=== PATIENT | female | born 1990 | race Caucasian/White ===

== ENCOUNTER 2025-05-27 23:43 | Emergency (ER) | payer OTHER, SELFPAY ==
[2025-05-27 23:49] VITALS: BP 104/65; PULSE 80; RESP 16; TEMP 36.5; O2SAT 100; BMI 18.8
[2025-05-28 00:04] VITALS: BP 104/65; PULSE 80; RESP 16; TEMP 36.5; O2SAT 100
--- OUTSIDE RECORDS SUMMARY | 2025-05-28 00:44 | XMS_ITS | Clinical Summary ---
Author Organization [address] [facility] Address [address] [place] [address] Phone Care Team Providers Care Group Sales Coordinator Name Role Phone Julio Hinojosa MD Primary Care Provider [phone] Allergies Active Allergy Reactions Criticality Noted Date Comments Clindamycin Nausea And Vomiting High 09/13/2016 Codeine Nausea And Vomiting 03/08/2013 Doxycycline Nausea And Vomiting 11/05/2011 Doxycycline + [id number] Grass Pollen Unknown 12/26/2024 Shellfish Derived Unknown 12/26/2024 Medications albuterol HFA (PROAIR HFA ; PROVENTIL HFA ; VENTOLIN HFA) 90 mcg/actuation inhaler Inhale 2 Puffs into the lungs every 6 hours as needed for Cough or Wheezing 0 Active clotrimazole-be tamethasone (LOTRISONE) 1-0.05 % cream Apply topically 2 (two) times a day for 14 days. 15 g 5 05/20/20 25 Active Problems Problem Noted Date Diagnosed Date Lightheadedness 04/11/2023 Palpitations 04/11/2023 Overview (09/11/2024): Last Assessment & Plan: The patient has been experiencing episodes of palpitations. We will order a Holter monitor to evaluate for any underlying arrhythmias as a cause of her symptoms. We will also order an echocardiogram to rule out any significant structural heart disease. Finally, given that her she also complains of symptoms of palpitations with exertion, we will order an exercise stress test to rule out any exercise associated arrhythmias. SOB (shortness of breath) 04/11/2023 Overview (09/11/2024): Last Assessment & Plan: The patient has been complaining of symptoms of palpitations that occur with exertion. Her palpitations are associated with symptoms of dyspnea and a chest tightness sensation. We will order an exercise stress test to rule out the presence of exercise-induced arrhythmias. The exercise stress test will also allow us the ability to rule out any ischemic ECG changes with exertion. We will also order an echocardiogram to rule out the presence of underlying structural heart disease that may be associated to her symptoms. 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 Other eczema (Primary Dx) from Last 3 Months Immunizations Immunization Administration Dates Next Due Tdap Tetanus diptheria acell ular pertussis (Boostrix; Adacel) 7yo and older 07/31/2015 Medical History Medical History Date Comments Anxiety 07/31/2015 DX:Anxiety 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 DX:Fa ilure to thrive in adult Asthma 09/14/2016 DX:Asthma Hx of chlamydia infection DX:Hx of chlamydia infection History of recurrent miscarr iages, not currently 09/13/2017 DX:History of recurrent misc arriages, not currently Subclinical hyperthyroidism 10/22/2019 DX:S ubclinical hyperthyroidism Family History Medical History Relation Name Comments Arthritis Paternal Grandfather rheumat oid Relation Name Status Comments Paternal Grandfather Social History Tobacco Use Types Packs/Day Years Used Date Smoking Tobacco: Every Day Cigarettes Smokeless Tobacco: Never Alcohol Use Standard Drinks/Week Comments No 0 (1 standard drink = 0.6 oz pur e alcohol) Housing Instability Answer Date Recorde d Are you worried that in the next 2 months you may not have stable housing? No 05/06/2025 Food Access & Nutrition Answer Date Rec orded Do you have access to a vari ety of food including fruits and vegetables? Yes 05/06/2025 Access to Healthcare Answer Date Record ed Within the last 3 months, ho w many times did you visit the emergency department for your medical care? 0 05/06/2025 Health Literacy Answer Date Recorded How often do you need to hav e someone help you when you read instructions, pamphlets, or other written material from your doctor or pharmacy? Never 05/06/2025 Caregiver: How often do you need to have someone help you when you read instructions, pamphlets, or other written material from your doctor or pharmacy? Not on file 05/06/2025 Financial Risk Answer Date Recorded How hard is it for you to pa y for the very basics like food, housing, medical care, and air conditioning / heating? Somewhat hard 05/06/2025 Transportation Answer Date Recorded Has the lack of transportati on kept you from meetings, work, or from getting things needed for daily living? No Has the lack of transportati on kept you from medical appointments or from getting medications? No 05/06/2025 Social Isolation Answer Date Recorded How often do you feel lonely or isolated from those around you? Sometimes 05/06/2025 Food Risk Answer Date Recorded Within the past 12 months we worried whether our food would run out before we got money to buy more. Never true 05/06/2025 Within the past 12 months th e food we bought just didn't last and we didn't have money to get more. Never true 05/06/2025 Dependent Care Answer Date Recorded Do you need help finding or paying for care for your loved ones. For example, director child abuse therapy or elderly care for an older adult? No 05/06/2025 Education Answer Date Recorded Do you think completing more education or training, like finishing a GED, going to college, or learning a trade, would be helpful for you? No 05/06/2025 Employment and Income Answer Date Recor ded During the last four weeks, have you been actively looking for work? No 05/06/2025 Living Situation Answer Date Recorded What is your living situation? Unrecognized valu e 05/06/2025 Comments Unknown Sex and Gender Information Value Date Recorded Sex Assigned at Female 11/12/2024 9:28 AM EDT Legal Sex Female 5:26 AM EST Gender Identity Female 11/12/2024 9:28 AM EDT Sexual Orientation Choose not to disclose 2024 9:28 AM EDT Obstetrics History Last Filed Vital Signs Vital Sign Reading Time Taken Comments Blood Pressure 104/56 05/06/2025 1:02 PM EDT Pulse 72 05/06/2025 1:02 PM EDT Temperature 36.6 C (97.8 F) 05/06/2025 1:02 PM EDT Respiratory Rate 18 02/02/2025 3:33 PM EDT Oxygen Saturation 99% 05/06/2025 1:02 PM EDT Inhaled Oxygen Concentration - - Weight 49.4 kg (109 lb) 02/02/2025 3:35 PM EDT Height 160 cm (5' 3 ) 02/02/2025 3:35 PM EDT Body Mass Index 19.31 02/02/2025 3:35 PM EDT Plan of Treatment Upcoming Encounters Date Type Department Care Team (Late st Contact Info) Description 06/14/2025 10:45 AM EST Office Visit Internal Medicine - [address] [id number] Deysi Turner, [place] [address] [place] [id number] Health Maintenance Due Date Last Done Comments Hepatitis B Vaccines (1 of 3 - 19+ 3-dose series) 2011 Pneumococcal Vaccine: Pediatrics (0 to 5 Years) and At-Risk Patients (6 to 49 Years) (1 of 2 - PCV) 2011 HPV Vaccines (1 - 3-dose SCD M series) 2019 Cervical Cancer Screening: P ap Smear 10/05/2019 10/04/2016, 10/04/2016 Depression Screening 07/18/2024 COVID-19 Vaccine ( - 2024-2 6 season) 2025 Influenza Vaccine (#1) 2025 DTaP,Tdap,and Td Vaccines (2 - Td or Tdap) 07/31/2025 07/31/2015 Social Influencers of Health Screening 05/06/2026 05/06/2025 Cholesterol Screening (Lipid Panel) 04/21/2028 04/21/2023 RSV Immunization Adult Patients (1 - 1-dose 75+ series) 2067 HIV Screening Completed 09/13/2016 Hepatitis C Screening Completed 09/13/2016 HIB Vaccines Aged Out No longer eligi ble based on patient's age to complete this topic Hepatitis A Vaccines Aged Out No long er eligible based on patient's age to complete this topic IPV Vaccines Aged Out No longer eligi ble based on patient's age to complete this topic MMR Vaccines Aged Out No longer eligi ble based on patient's age to complete this topic Meningococcal ACWY Vaccine Aged Out N o longer eligible based on patient's age to complete this topic Meningococcal B Vaccine Aged Out No l onger eligible based on patient's age to complete this topic RSV Immunization Patients Under 20 months Aged Out No longer eligible b ased on patient's age to complete this topic Varicella Vaccines Aged Out No longer eligible based on patient's age to complete this topic Goals Goal Patient Goal Type Associated Problems Recent Progress Patient-Stated? 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 - not met Pt will be independent with HEP - met Procedures Procedure Name Priority Date/Time Associated Diagnosis Comments LIPID PANEL Routine 04/21/2023 PAP SMEAR Routine 10/04/2016 HEPATITIS C SCREENING Routine 09/13/2016 HIV SCREENING Routine 09/13/2016 from Last 3 Months or Most Recently Relevant to Health Maintenance Results * Lipid panel (04/21/2023) LDL/HDL Ratio 2 0 - 4 Triglycerides 108 0 - 150 mg/dL Cholesterol 133 0 - 200 mg/dL HDL 55 >=40 mg/dL LDL Cholesterol 57 0 - 100 mg/dL Blood Venous blood specimen / Unknown Historical Provider LAB BLOOD ORDERABLES Sneha l Result * Pap Smear (10/04/2016) Pap smear Negative, Abstracted Historical Provider HEALTH MAINTENANCE Final Result * HIV Screening (09/13/2016) HIV Screening Abstracted Historical Provider HEALTH MAINTENANCE Final Result * Hepatitis C Screening (09/13/2016) Hepatitis C Screening Abstracted Historical Provider HEALTH MAINTENANCE Final Result from Last 3 Months or Most Recently Relevant to Health Maintenance [place] [place] [address] [employer] Care Teams Group Sales Coordinator Relationship Specialty Start Date End Date Julio Hinojosa MD [address] [place] [id number] PCP - General Internal Medicine 08/01/19
--- OUTSIDE RECORDS SUMMARY | 2025-05-28 00:44 | XMS_ITS | Data Portability ---
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 Plan of Treatment Reminders Order Date Submit Date Provider Last Modified By Organization Details Last Modified Time Details Appointments None recorded. Lab rapid strep group A, throat 2022 023 [email or web address] [address], [address] [place], [address], 3 11:12:35 streptococ cus group A, culture, throat 2022 023 [place]L [place] [facility], [address] [place] [address], [place], [address], 3 06:07:47 Referral None recorded. Procedures None recorded. Surgeries None recorded. Imaging None recorded. Medication Orders amoxicilli n 875 mg tablet 2022 023 [facility]1130, [phone] [place], [address], 3 11:12:39 prednisone 20 mg tablet 2022 023 [facility]1130, [phone] [place], [address], 3 11:12:39 Allergy Relief (fluticaso ne) 50 mcg/actuat ion nasal spray,susp ension 2022 023 [facility] [phone] [place], [address], 3 11:12:38 fexofenadi ne 180 mg tablet 2022 023 [facility], [phone] [place], [address], 3 11:12:39 prednisone 20 mg tablet 2021 022 [facility] [phone] [place], [address], 3 10:38:05 benzonatat e 100 mg capsule 2021 022 [facility], [phone] [place], [address], 3 10:38:27 albuterol sulfate HFA 90 mcg/actuat ion aerosol inhaler 2021 022 [facility] [phone] [place], [address], 2 16:05:59 Patient TargetsNo targets recorded. Patient Instructions Encounter Date Encounter Id Patient Instructions Last Modified By Organization Details Last Modified Time 07/08/2022 [id number] cough: care instructions Not available 07/08/2022 16:05:56 [facility] if you develop ANY new or worsening symptoms. Call 911 if you feel that you are having a medical emergency. Call your primary care physician today to set up a follow up appointment within one week. Not following up with your primary care physician may result in adverse health conditions. If you have any questions or concerns, please call us. Take over the counter medications such as ibuprofen or tylenol according to package instructions. Do not exceed maximum dosage for age/weight. Do not take anything that you might be allergic to. Make sure to consult us or your primary care physician if you take medications such as blood thinners or blood pressure medications before taking over the counter medications. The best over the counter cough medication for people with high blood pressure is Coricidin, which is available at any pharmacy without a prescription. Drink plenty of water. [email or web address] Not available 07/08/2022 16:05:16 11/21/2022 [id number] sore throat: car choco instructions [email or web address] Not available 11/21/2022 11:12:35 Discussed potential complications and intervention options with the patient during this visit. Patient was instructed to increase room humidity and eat soft bland foods. Raising the head of the bed, lozenges, and saline nasal spray were also recommended. Patient may take ibuprofen or acetaminophen as needed for pain control. If the issue does not improve in 24-48 hours, patient should return to the clinic for follow-up. You have been prescribed an antibiotic for your bacterial illness. While antibiotics are sometimes necessary, they can have a negative impact upon the healthy bacteria within your body. This can result in diarrhea/loose stools and yeast infections. By taking probiotics during the course of your prescription, you can lessen the probability of these undesirable side effects. Probiotics can be purchased [id number] at your pharmacy in the form of capsules or gummies. They are also found naturally in yogurt with live cultures. Mix salt into a quarter-glass of warm water and stir until no more salt will dissolve. Gargle and spit out the salt water mixture one mouthful at a time until the glass is empty. Repeat 4 times daily. Hand hygiene is a jenkins measure for preventing spread to others, especially after coughing or sneezing and before preparing foods or eating, and we remind all patients of its importance. Please discard of your current tooth brush and get a new one after being on the antibiotic for 3-4 days to prevent reinfection. You are considered contagious until you have the antibiotic for 24 hours. We have sent out for lab results, typically take 3-5 days to return. [email or web address] Not available 11/21/2022 11:12:32 Reason for Referral None Reported. Results Created Date Observation Date Name Description Value Unit Range Abnormal Flag Note LastModifiedBy Organization Detail LastModifiedTime 11/22/19 23 11/24/2022 BETA STREP GP A CULTU RE beta strep gp A culture COMMEN T abnormal Beta- hemol ytic colon ies, not group A Strep tococ cus isola josefina. Refer ence Range : Negat horacio Penic illin and ampic illin are drugs of choic e for treat ment of beta- hemol ytic strep tococ alpa infec tions . Susce ptibi lity testi ng of penic illin s and other beta- lacta m agent s appro jesu by the FDA for treat ment of beta- hemol ytic strep tococ alpa infec tions need not be perfo rmed routi mckenzie becau se nonsu scept ible isola corrina are extre crystal rare in any beta- hemol ytic strep tococ cus and have not been repor josefina for Strep tococ cus pyoge ruel (grou p A). (CLSI ) Not Available [facility] ([facility]) [address] [facility], [place], [address], 11/24/2022 06:07:47 11/22/1911/21/2022 rapid strep group A, throa t Unknown Analyte Normal = Negati ve Not Available [address] [place], [address], 11/21/2022 10:35:27 11/22/1911/21/2022 rapid strep group A, throa t Unknown Analyte negati ve Not Available [address] [place], [address], 11/21/2022 10:35:27 Result Notes None recorded. Problems Name Problem SNOMED Code Status Onset Date Resolution Date Notes Provider Name and Address Organization Details Recorded Time Asthma 514425776 Active 2021 [facility] 2 15:43:11 Anxiety 02875196 Active 2022 [facility] 3 10:40:42 Hypoglycemia 693033862 Active 2022 EDU Pruitt [facility] 3 10:42:04 Atrial fibrillation 42089116 Active 2022 NICOLLE HUBBARD null, PA - [facility] 3 10:43:51 Migraine 59575988 Active 2022 NICOLLE HUBBARD null, PA - [facility] 3 10:43:57 Notes:H pylori Problem Notes None recorded. Medical Equipment None Reported. Allergies Allergen ID Allergen Name Allergen Category Reaction Reaction Severity Criticality Documentation Date Start Date Code Code System Note Provider Name and Address Organization Details Recorded Time 403303 grass pollen environme nt,medica tion Not available Not available Not available 11/21/2022 NICOLLE HUBBARD null, PA - [facility] 3 10:36:19 839870 codeine medicatio n vomiting Not available Not available 11/21/2022 2670 RxNorm NICOLLE HUBBARD null, PA - [facility] 3 10:36:57 618001 oxycodone medicatio n vomiting Not available Not available 11/21/2022 7804 RxNorm NICOLLE HUBBARD null, PA - [facility] 3 10:37:28 522290 shellfish derived food,medi cation Not available Not available Not available 11/21/2022 NICOLLE HUBBARD null, PA - [facility] 3 10:37:52 22477 doxycycli ne Not available vomiting Not available Not available 07/08/2022 3640 RxNorm GUS DESMITH null, PA - [facility] 2 15:42:18 76407 clindamyc in Not available vomiting Not available Not available 07/08/2022 2582 RxNorm GUS DESMITH null, PA - [facility] 2 15:42:26 Medications Name Sig Start Date Stop Date Status Note LastModified by Organization Details LastModified Time amoxicillin 500 mg capsule TAKE 1 CAPSULE BY MOUTH TWICE A DAY 07/08 completed Not Available Not Available Not Available acetaminoph en 325 mg tablet TAKE 2 TABLET BY MOUTH EVERY 4 HOURS NEEDED FOR PAIN active Not Available Not Available No t Available ibuprofen 800 mg tablet TAKE 1 TABLET BY MOUTH EVERY 6 TO 8 HOURS NEEDED 07/08 completed Not Available Not Available Not Available sucralfate 1 gram tablet TAKE 1 TABLET BY MOUTH BEFORE MEALS active Not Available Not Available No t Available metronidazo le 0.75 % (37.5 mg/5 gram) vaginal gel USE 1 APPLICATO R VAGINALLY DAILY AT BEDTIME,X 5 DAYS 07/08 completed Not Available Not Available Not Available prednisone 20 mg tablet TAKE 2 TABLETS EVERY DAY BY ORAL ROUTE WITH MEALS FOR 3 DAYS. active Not Available Not Available No t Available metronidazo le 500 mg tablet TAKE 1 TABLET BY MOUTH EVERY 12 HOURS FOR 7 DAYS 07/08 completed Not Available Not Available Not Available fexofenadin e 180 mg tablet TAKE 1 TABLET BY MOUTH EVERY DAY DIRECTED active Not Available Not Available No t Available oxycodone-a cetaminophe n 5 mg-325 mg tablet TAKE 1 TABLET BY MOUTH EVERY 4 TO 6 HOURS NEEDED FOR PAIN 07/08 completed Not Available Not Available Not Available amoxicillin 875 mg tablet TAKE 1 TABLET BY MOUTH EVERY 12 HOURS WITH MEALS FOR 10 DAYS active Not Available Not Available No t Available benzonatate 100 mg capsule TAKE 1 CAPSULE BY MOUTH THREE TIMES A DAY 11/21 completed Not Available Not Available Not Available gabapentin 300 mg capsule TAKE 1 CAPSULE BY MOUTH 3 TIMES A DAY NEEDED FOR PAIN X5 DAYS 11/21 completed Not Available Not Available Not Available omeprazole 20 mg capsule,del ayed release active Not Available Not Available Not Available ibuprofen 600 mg tablet TAKE 1 TABLET BY MOUTH 4 TIMES A DAY active Not Available Not Available No t Available norethindro ne (contracept horacio) 0.35 mg tablet TAKE 1 TABLET BY MOUTH EVERY DAY 11/21 completed Not Available Not Available Not Available fluticasone propionate 50 mcg/actuati on nasal spray,suspe nsion SPRAY 1 SPRAY BY INTRANASA L ROUTE EVERY DAY DIRECTED FOR 30 DAYS active Not Available Not Available No t Available Ventolin HFA 90 mcg/actuati on aerosol inhaler INHALE 2 PUFFS EVERY 6 HOURS active Not Available Not Available No t Available oxycodone 5 mg tablet TAKE 1 TABLET BY MOUTH EVERY 6 HOURS NEEDED FOR PAIN 11/21 completed Not Available Not Available Not Available azithromyci n 500 mg tablet TAKE 2 TABLETS BY MOUTH ONCE 07/08 completed Not Available Not Available Not Available nitrofurant oin monohydrate /macrocryst als 100 mg capsule TAKE 1 PILL (ORAL) 2 TIMES PER DAY FOR 5 DAYS 11/21 completed Not Available Not Available Not Available ProAir HFA active Not Available Not Av ailable Not Available naloxone 4 mg/actuatio n nasal spray ADMINISTE R 1 SPRAY INTO ONE NOSTRIL. CALL 911. REPEAT AFTER 2-3 MIN IF NO OR MINIMAL RESPONSE active Not Available Not Available No t Available M-Eileen Plus 27 mg iron-1 mg tablet TAKE 1 TABLET BY MOUTH EVERY DAY 07/08 completed Not Available Not Available Not Available Flowflex COVID-19 Antigen Home Test kit USE DIRECTED ON MANUFACTU RERS PACKAGING 11/21 completed Not Available Not Available Not Available Vitals Date Recorded Body height Body mass index (BMI) Body weight Pain severity - 0-10 verbal numeric rating [Score] - Reported Respiratory rate Oxygen saturation Oxygen saturation in Arterial blood by Pulse oximetry Body temperature Heart rate Heart rate Systolic And Diastolic Provider Name and Address Organization Details Last Updated DateTime 3 241.3 cm 7.6 kg/m2 34104.0 5 g 7 16 /min 98 % 98 % 98.5 [degF] 119 /min 109 /min 115/74 mm[Hg] NICOLLE HUBBARD [place] [facility] 3 10:43:32 Date Recorded Body height Body mass index (BMI) Body weight Pain severity - 0-10 verbal numeric rating [Score] - Reported Body temperature Heart rate Respiratory rate Oxygen saturation Oxygen saturation in Arterial blood by Pulse oximetry Systolic And Diastolic Provider Name and Address Organization Details Last Updated DateTime 2 160.02 cm 17.7 kg/m2 62077.2 4 g 5 98.4 [degF] 76 /min 20 /min 99 % 99 % 119/73 mm[Hg] GUS BECERRIL PA [facility] 2 15:44:52 Social History Question Answer Notes LastModified by Organizat ion Details LastModified Time Tobacco Smoking Status Current Every Day Smoker GUS keene PA - [facility] 07/08/2022 15:43:34 How Much Tobacco Do You Smoke? 0.5 PPD [email or web address] Information not available 11/21/2022 Have You Recently Traveled Abroad? No Information not available 07/08/2022 Sex: Unknown Functional Status Question Answer Note LastModified by Organizat ion Details LastModified Time Do you use any illicit or recreational drugs? No Information not available 07/08/2022 Do you or have you ever used any other forms of tobacco or nicotine? No Information not available 07/08/2022 What is your level of alcohol consumption? None Information not available 07/08/2022 Mental Status None recorded. Family History Relationship Description Onset Age of this Age Resolved Age Notes LastModified by Organization Details LastModified Time Unspecified Relation Hypertensive disorder Not available 2021 15:43:19 Unspecified Relation Asthma Not available 022 15:43:24 Unspecified Relation Heart disease [email or web address] Not available 2022 10:41:33 Unspecified Relation Malignant neoplastic disease [email or web address] Not available 2022 10:41:37 Medical History No medical history recorded. Gynecological History Statement/Question Response Date of LMP 11/21/2022 Is there any chance of ? Unsure LMP Definite Obstetrics History GPAL:G 0 P 0 0 0 0 Immunizations Vaccine Type Date Status Note Provider Nam e and Address Organization Details Recorded Time Tdap 07/31/2015 completed [facility] 07/08/2022 15:42:31 Past Encounters Encounter ID Performer Location Encounter Start Date Encounter Closed Date Diagnosis/Indication Diagnosis SNOMED-CT Code Diagnosis ICD10 Code Diagnosis IMO Codes Diagnosis Note [id number] [address] [place] [address] 09/05/2020 17:00:42 09/05/2020 17:48:46 [id number] [address] [place] [address] 05/22/2020 08:05:09 05/22/2020 09:09:37 [id number] [address] [place] [address] 03/13/2021 08:18:54 03/13/2021 09:57:24 [id number] [address] [place] [address] 11/14/2020 16:47:41 11/14/2020 17:51:53 [id number] [address] [place] [address] 09/16/2020 09:39:04 09/16/2020 10:39:39 [id number] [address] [place] [address] 06/03/2020 16:30:49 06/03/2020 17:44:54 [id number] [address] [place] [address] 01/27/2021 12:43:16 01/27/2021 14:17:03 [id number] EDU Chavez [address] [place] [address] 07/08/2022 15:30:41 07/08/2022 16:10:05 Acute upper respiratory infection 41849137 J06.9 [id number] Montez Moore MD [address] [place] [address] 11/21/2022 10:29:22 11/21/2022 11:15:29 Streptococcal sore throat 59696265 J02.0 Acute sinusitis 80026757 J01.90 Health Concerns Section Related Observation LastModified by Organization Detai ls LastModified Time None Recorded Concern Status LastModified by Organization Details LastModified Time None Recorded Advance Directives Directive None Recorded Payers Insurance Date Sequence Insurance Name Policy Number Policy Maldonado Covered Member ID Maldonado Member ID Guarantor Name 11/21/2022 1 [facility] - HEALTH NET PLAN (MEDICAID HMO) LAURA Louis [id number] Bettie Louis Notes Date Note Type Note Provider Name and Address Organization Details Recorded Time 07/08/2022 text/html CoughReported by PatientPt reports cough x 3 weeks, mostly dry. Hx of asthma. Doesn't actively feel like she is wheezing, but doesn't have a rescue inhaler. Denies fever, SOB, n/v/d. Some rhinitis intermittently. Taking OTC without improvement. Daughter dx with RSV a few weeks ago. EDU Chavez [address] [place], [address], [place] [facility] 07/08/2022 16:14:19 11/21/2022 text/html Sore throatRepor josefina by PatientSore ThroatFor associated symptoms, patient reportssore throat,hoarseness,cough ing, andsinus pain/ congestionbut reportsno sputum production,no shortness of breath,no wheezing,no vomiting, andno nausea. For context, patient reportssick contactbut reportsno foreign travelandnon-smoker. For modifying factors, patient reportsexposed to strep non household. For source of patient information, patient reportsinformation obtained from patient,patient arrived at urgent care ambulatory, andlearning styles: auditory. For location, patient reportsthroat. For severity, patient reportsmild. For quality, patient reportssharpandburning. For onset/timing, patient reports3 days. Eugenio Gaspar NP [address] [place], [address], [place] [facility] 11/21/2022 11:14:08 OBGyn Episode No OBEpisode recorded.
[2025-05-28 01:50] VITALS: BP 109/70; PULSE 98; RESP 16; TEMP 36.7; O2SAT 98
[2025-05-28] MEDS: Lidocaine HCl 1 % MPF 5 ML VIAL INFILTRATI (01:53)
--- NOTE | 2025-05-28 01:53 | ED.SKABFB ---
HPI - Skin/Abscess/Foreign Bdy General Chief complaint: Skin/Abscess/Foreign Body Stated complaint: Cyst on back Time Seen by Provider: 05/28/25 00:46 Source: patient Mode of arrival: ambulatory Limitations: no limitations History of Present Illness ED Provider: Dr. Maria L Clemons HPI narrative: Patient comes to the emergency room complaining of a lump of the right side of the back that has been there for a year. Patient states that over last week it started growing again and becoming more painful. Patient states that she has been taking Tylenol without any relief. Denies fever chills. Denies any recent injuries. Patient states that the original lump started a year ago after a fall. Patient denies being on blood thinners. Related Data Home Medications ?Medication ?Instructions ?Recorded ?Confirmed albuterol sulfate 90 mcg/actuation 1 inh inhalation QID 10/16/21 aerosol inhaler diclofenac sodium 25 mg 25 mg PO BID 10/16/21 tablet,delayed release norethindrone (contraceptive) 0.35 0.35 mg PO DAILY 10/16/21 mg tablet propranolol 10 mg tablet 10 mg PO BID 10/16/21 riboflavin (vitamin B2) 400 mg 400 mg PO DAILY 10/16/21 tablet sumatriptan succinate 50 mg tablet See Rx Instructions PO .COMPLEX 10/16/21 (Imitrex) tizanidine 4 mg capsule 4 mg PO BEDTIME PRN 10/16/21 Previous Rx's ?Medication ?Instructions ?Recorded propranolol 10 mg tablet 10 mg PO BID #180 tabs 10/26/21 Saccharomyces boulardii 250 mg 250 mg PO BID #14 caps 05/28/25 capsule (Florastor) sulfamethoxazole 800 1 tab PO BID #10 tabs 05/28/25 mg-trimethoprim 160 mg tablet (Bactrim DS) tramadol 25 mg tablet 25 mg PO BID PRN pain #6 tabs 05/28/25 Allergies Allergy/AdvReac Type Severity Reaction Status Date / Time shellfish derived Allergy Severe Anaphylaxis Verified 05/28/25 01:59 codeine (CODEINE) Allergy Unknown nausea/vomi Verified 05/27/25 23:51 ting doxycycline (DOXYCYCLINE) Allergy Unknown NAUSEA AND Verified 05/27/25 23:51 VOMITTING clindamycin Allergy Vomiting Verified 05/27/25 23:51 Review of Systems Review of Systems: Constitutional : No Weight loss, No Fever, No Chills, No Night Sweats, No Fatigue, No Malaise ENT/Mouth : No Hearing loss, No Ear Pain, No Nasal Congestion, No Sinus Pain, No Hoarseness, No sore throat, No Rhinorrhea, No Swallowing Difficulty Eyes: No Eye Pain, No Swelling, No Redness, No Foreign Body, No Discharge, No Vision Changes Cardiovascular : No Chest Pain, No SOB, No Dyspnea on Exertion, No Orthopnea, No Edema, No Palpitations Respiratory : No Cough, No Sputum, No Wheezing, No Smoke Exposure, No Dyspnea Gastrointestinal : No Nausea, No Vomiting, No Diarrhea, No Constipation, No abdominal Pain, No Hematochezia, No Melena Genitourinary : no irregular bleeding, No Dysuria, No Urinary Frequency, No Hematuria, No Urinary Incontinence, No Urgency, No Flank Pain, No Urinary Flow Changes, No Hesitancy Musculoskeletal : Complaining of a painful swelling/lump on the right side of the back Skin : No Skin Lesions, No rash Neuro : No Weakness, No Numbness, No Paresthesias, No Loss of Consciousness, No Dizziness, No Headache Psych : No Anxiety/Panic, No Depression, No SI/HI/AH/VH, No Social Issues, Heme/Lymph: No Bruising, No Bleeding,No Lymphadenopathy Endocrine : No Polyuria, No Polydipsia, No Temperature Intolerance [facility] Family History Family History (System 02/22/23 @ 10:13 by Haily Jerez) Paternal Grandfather Rheumatoid arthritis Social History Social History (System 02/22/23 @ 10:13 by Haily Jerez) Patient Tobacco Use Status: Current someday Tobacco user Smoked in Last 30 Days: Yes Use of substances other than those prescribed or required for medical reasons: No Advance Directives: No Advance Directives Information Provided: Yes Do you have a plan to hurt others: No Plan Patient : No Physical Exam Exam: Exam: Appearance: Alert. Oriented X3. No acute distress. Eyes: Pupils equal, round and reactive to light. ENT: Pharynx normal. Neck: Normal inspection. Neck supple. No lymph nodes noted. No crepitus CVS: Normal heart rate and rhythm. Pulses normal. Normal S1 and S2 Respiratory: No respiratory distress. Breath sounds normal. No Wheezing. No rales Abdomen: Soft and nontender. No rigidity. No distention. Back: There is 3 cm x 3 cm lump on the right side of the back. Ultrasound: Looks like there is an abscess/cyst. Skin: Skin warm and dry. Normal skin color. Normal skin turgor. Extremities: No lower extremity edema. No Lacerations. No Rash Neuro: Oriented X 3. No motor deficit. No sensory deficit. Moving all extremities. No slurred speech. CN 2 through 12 grossly intact Psych: calm, cooperative, normal affect Vital Signs: Vital Signs: Last Vital Signs Temp 98.0 F 05/28/25 01:50 Pulse 98 05/28/25 01:50 Resp 16 05/28/25 01:50 BP 109/70 05/28/25 01:50 Pulse Ox 98 05/28/25 01:50 O2 Del Method Room Air 05/28/25 01:50 BMI result Body Mass Index 18.8 Course Course Course Narrative: I discussed the physical exam with the patient. Based on ultrasound and physical appearance, it is assist versus an abscess. I recommended incision and drainage. Patient admits that she is very anxious, declined any medication for anxiety. 5 mL of lidocaine were injected. 4 mm incision was made. Patient drained a large amount of chunky pus, the capsule was extracted successfully Patient had several near syncopal/vasovagal episodes without fully losing consciousness. Patient reported multiple times feeling dizzy and nauseous. After the procedure was concluded, patient started feeling better. Medications Administered Discontinued Medications Generic Name Dose Route Start Last Admin Trade Name Freq PRN Reason Stop Dose Admin Acetaminophen 975 mg 05/28/25 01:52 05/28/25 01:55 Acetaminophen 325 Mg Tablet PO 05/28/25 01:53 975 mg ONCE ONE Administration Cephalexin HCl 250 mg 05/28/25 01:52 05/28/25 01:55 Cephalexin 250 Mg Capsule PO 05/28/25 01:53 250 mg ONCE ONE Administration Lidocaine HCl 5 ml 05/28/25 01:51 05/28/25 01:53 Lidocaine Hcl 1 % Mpf 5 Ml Vial INFILTRATI 05/28/25 01:52 5 ml ONCE ONE Administration Procedures Abscess I/D Site: back Side (if applicable): right Local Anesthetic: lidocaine 1% Amount of anesthesia used (mL): 5 Technique: needle aspiration, incised with blade and ultrasound guided Amount of fluid expressed (mL): 10 Sent for culture/gram staining?: No Packing used?: iodoform Discharge Plan Discharge Clinical Impression: Abscess of skin or subcutaneous tissue Patient Disposition: Home, Self-Care Instructions: Abscess Incision and Drainage (DC) Additional Instructions: Please return to the emergency room or please go with your primary care physician in the next 24 to 36 hours. You will need a wound check and packing removal. You will experienced a bit of bruising. You are going to see mild blood drainage and pus drainage which is expected. Please follow-up with your primary care physician tomorrow. If you have any worsening or new symptoms, please return to the emergency room or call 911 Prescriptions: New sulfamethoxazole-trimethoprim [Bactrim DS] 800-160 mg tablet 1 tab PO BID Qty: 10 0RF Saccharomyces boulardii [Florastor] 250 mg capsule 250 mg PO BID Qty: 14 0RF tramadol 25 mg tablet 25 mg PO BID PRN (Reason: pain) Qty: 6 0RF No Action propranolol 10 mg tablet 10 mg PO BID Qty: 180 6RF albuterol sulfate 90 mcg/actuation HFA aerosol inhaler 1 inh inhalation QID diclofenac sodium 25 mg tablet,delayed release (DR/EC) 25 mg PO BID sumatriptan succinate [Imitrex] 50 mg tablet See Rx Instructions PO .COMPLEX Rx Instructions: take 1 tab at onset of headache; if no relief may repeat 1 tab after at least 2 hrs; max = 4 tabs/24 hr PO norethindrone (contraceptive) 0.35 mg tablet 0.35 mg PO DAILY propranolol 10 mg tablet 10 mg PO BID riboflavin (vitamin B2) 400 mg tablet 400 mg PO DAILY tizanidine 4 mg capsule 4 mg PO BEDTIME PRN Stand Alone Forms: Work/School Release Print Language: Nigerian
[2025-05-28 02:44] VITALS: BP 109/70; PULSE 98; RESP 16; TEMP 36.7; O2SAT 98
== END 2025-05-28 02:54 | disposition home or self-care (01) ==
PROVIDERS: Emergency Provider Emergency Medicine; PCP Internal Medicine
DX: L02.212 Cutaneous abscess of back [any part, except buttock and flank] (principal)
CPT/HCPCS: 10060; 99284; J2003

== ENCOUNTER 2025-05-29 04:40 | Emergency (ER) | payer OTHER, SELFPAY ==
[2025-05-29 04:48] VITALS: BP 105/64; PULSE 94; RESP 18; TEMP 36.6; O2SAT 98; BMI 19.3
--- OUTSIDE RECORDS SUMMARY | 2025-05-29 05:01 | XMS_ITS | Encounter Summary ---
[facility] [address] [place] [address] Care Team Providers Care Wood Carver Hand Name Role Phone Keny Wheat Primary Care Provider [phone] Justin Marroquin MD Primary Care Provider Unavail able Nacho Vera MD Primary Care Provider Unavaila Sharon Carcamo MD Primary Care Provider Unavail able Lexa Mukherjee MD Primary Care Provider Unavail [facility] Primary Care Provider UnavailJulio Westfall MD Primary Care Provider [phone] Mata Duran MD Unavailable [phone] Encounter Details Date Type Department Care Team Description 04/16/2010 Hospital Medical Records [address] [place] [address] Linda Alegre MD Social History Tobacco Use Types Packs/Day Years Used Date Smoking Tobacco: Every Day Cigarettes 0.5 7 Smokeless Tobacco: Never Comments:4-5 depending on da y Alcohol Use Standard Drinks/Week Comments No 0 (1 standard drink = 0.6 oz pur e alcohol) Sex Assigned at Date Recorded Not on file documented as of this encounter Plan of Treatment Not on file documented as of this encounter Visit Diagnoses Not on filedocumented in this encounter Care Teams Wood Carver Hand Relationship Specialty Start Date End Date Keny Wheat [address] [place] [address] PCP - General 12/05/07 10/25/13 Justin Marroquin MD [address] [place] [address] PCP - General Internal Medicine 10/26/13 03/06/15 Nacho Vera MD [address] [place] [address] PCP - General Internal Medicine 03/07/15 08/31/16 Sharon Turcios MD [address] [place] [address] PCP - General Internal Medicine 09/01/16 09/16/16 Lexa Mukherjee MD [address] [place] [address] PCP - General Internal Medicine 09/17/16 07/08/19 [facility], Pcp [address] [place] [address] PCP - General Internal Medicine 07/09/19 07/31/19 Julio Hinojosa MD [address] [place] [address] PCP - General Internal Medicine 08/01/19 Mata Duran MD [facility] [place] [facility] Roldan [address] [place] [address] Specialist Cardiovascular Disease 01/26/23 documented as of this encounter
--- OUTSIDE RECORDS SUMMARY | 2025-05-29 05:01 | XMS_ITS | Encounter Summary ---
Author Organization [facility] Address [address] [place] [address] Care Team Providers Care Professional Tutor Name Role Phone Julio Hinojosa MD Primary Care Provider Mata Duran MD Unavailable [phone] Encounter Details Date Type Department Care Team Description 12/23/2023 SCAN [facility] [address] [facility] [address] [place] [address] [phone] Sylvia Toussaint PA-C 175 [facility] [address] [place] [address] [phone] Social History Tobacco Use Types Packs/Day Years [...] on filedocumented in this encounter Care Teams Professional Tutor Relationship Specialty Start Date End Date Julio Hinojosa MD [address] [place] [address] PCP - General Internal Medicine 08/01/19 Mata Duran MD [address] [place] [address] [place] [address] Specialist Cardiovascular Disease 01/26/23 documented as of this encounter
--- OUTSIDE RECORDS SUMMARY | 2025-05-29 05:01 | XMS_ITS | Encounter Summary ---
Author Organization [facility] Address [address] [place] [address] Care Team Providers Care Graduate Recruiter Name Role Phone Julio Hinojosa MD Primary Care Provider [phone] Mata Duran MD Unavailable [phone] Encounter Details Date Type Department Care Team Description 09/23/2020 Old Medical Records Medical Records [address] [place] [address] Abstract, Provider Social History Tobacco Use Types Packs/Day Years [...] on filedocumented in this encounter Care Teams Graduate Recruiter Relationship Specialty Start Date End Date Julio Hinojosa MD [address] [place] [address] PCP - General Internal Medicine 08/01/19 Mata Duran MD [address] [place] [address] [place] [address] Specialist Cardiovascular Disease 01/26/23 documented as of this encounter
--- OUTSIDE RECORDS SUMMARY | 2025-05-29 05:01 | XMS_ITS | Encounter Summary ---
[facility] Address [address] [place] [address] Care Team Providers Care Sanitation Laborer Name Role Phone Lexa Mukherjee MD Primary Care Provider Unavail [facility] Primary Care Provider UnavailJulio Westfall MD Primary Care Provider [phone] Mata Duran MD Unavailable Reason for Visit * Reason Onset Date Comments TEST RESULTS 04/12/2017 Encounter Details Date Type Department Care Team Description 04/12/2017 Telephone OBGYN - [facility] [address] [place] [address] Renae Helms DO TEST RESULTS Social History Tobacco Use Types Packs/Day Years Used Date Smoking Tobacco: Every Day Cigarettes 0.5 7 Smokeless Tobacco: Never Comments:10 Alcohol Use Standard Drinks/Week Comments No 0 (1 standard drink = 0.6 oz pur e alcohol) Sex Assigned at Date Recorded Not on file documented as of this encounter Miscellaneous Notes * Telephone Encounter - Meka Argueta L.P.NGurdeep - 04/12/2017 4:12 PM EDT Spoke with pt she is aware of appropriate drop in her hcg levels. She will come in next week on Tuesday for another blood draw. She has developed left sided pelvic cramping since this past Tuesday all throughout the day. She denies fever,chills,vomiting,foul odor in the vagina. She states she is not sure if this pain is from her two cysts she has or if there still can be some tissue inside. She would like a message sent to Dr. Helms for recommendations . Message to Dr. Helms for review. Thank you. Please see result note. Result note routed to Dr. Helms for review. * Telephone Encounter - Mattie Schmitz - 04/12/2017 3:54 PM EDT Chief Complaint/problem: Patient is calling to see if blood test results from today are back yet How long has the patient had this problem? - Pt???s SIDE SHOW ENTERTAINER provider: Renae Helms, DO Last menstrual period (LMP) or EDC (due date): N/A documented in this encounter Plan of Treatment Not on file documented as of this encounter Visit Diagnoses Not on filedocumented in this encounter Care Teams Sanitation Laborer Relationship Specialty Start Date End Date Lexa Mukherjee MD PCP - General Internal Medicine 09/17/16 07/08/19 [facility] PCP - General Internal Medicine 07/09/19 07/31/19 Julio Hinojosa MD [address] [place] [address] PCP - General Internal Medicine 08/01/19 Mata Duran MD [address] [place] [address] Dr Roldan [address] [place] [address] Specialist Cardiovascular Disease 01/26/23 documented as of this encounter
--- OUTSIDE RECORDS SUMMARY | 2025-05-29 05:01 | XMS_ITS | Encounter Summary ---
Author Organization [facility] Address [address] [place] [address] Care Team Providers Care Web Marketing Specialist Name Role Phone Julio Hinojosa MD Primary Care Provider Mata Duran MD Unavailable [phone] Encounter Details Date Type Department Care Team Description 01/25/2024 SCAN [facility] 175 [facility] [address] [place] [address] [phone] Sylvia Toussaint PA-C [address] [phone] Social History Tobacco Use Types Packs/Day Years [...] on filedocumented in this encounter Care Teams Web Marketing Specialist Relationship Specialty Start Date End Date Julio Hinojosa MD [address] [place] [address] PCP - General Internal Medicine 08/01/19 Mata Duran MD [address] [place] [address] [place] [address] Specialist Cardiovascular Disease 01/26/23 documented as of this encounter
--- OUTSIDE RECORDS SUMMARY | 2025-05-29 05:01 | XMS_ITS | Encounter Summary ---
Author Organization [facility] Address [address] [place] [address] Care Team Providers Care Agricultural Adviser Name Role Phone Julio Hinojosa MD Primary Care Provider [phone] Mata Duran MD Unavailable [phone] Reason for Visit * Reason Onset Date Comments 08/03/2019 Encounter Details Date Type Department Care Team Description 08/03/2019 Telephone OBGYN - [facility] [address] [place] [address] Renae Helms DO Social History Tobacco Use Types Packs/Day Years Used Date Smoking Tobacco: Every Day Cigarettes 0.5 7 Smokeless Tobacco: Never Comments:5 depending on day Alcohol Use Standard Drinks/Week Comments No 0 (1 standard drink = 0.6 oz pur e alcohol) Sex Assigned at Date Recorded Not on file documented as of this encounter Miscellaneous Notes * Telephone Encounter - Lisa Caballero C.M.A. - 08/06/2019 9:47 AM EST Spoke with pt who was informed of the above, pt states she couldn't swallow and at present feeling better she will discontinue the antibiotic. FYI * Telephone Encounter - Maxine Blanco PA-C - 08/03/2019 4:57 PM EST Pt can crush tablets as small as she desires and then sprinkle them in icecream, yogurt, applesauce, etc * Telephone Encounter - Rebecca Crane R.N. - 08/03/2019 4:01 PM EST Pt informed of meds in list below for congestion that are safe with . Pt states is having a tough time with swallowing the Amoxicillin tablets, even when breaking them in half, still too bigto swallow with yogurt or apple sauce. She is asking if can get abx in liquid form? Please advise. MEDICATIONS SAFE TO TAKE IN Caution: do not exceed manufacturers recommendations Cold and Flu: ??? Acetaminophen (Tylenol) ??? Tylenol Cold (not multi-symptom) ??? Warm salt/water gargle ??? Saline nasal drops/spray ??? Chlor-Trimenton ??? Robitussin (plain only) ??? Triaminic cough ??? Vicks Cough Syrup ??? Cough drops Congestion: ??? Saline nasal drops/spray ??? Dristan nasal spray * Telephone Encounter - Meka Argueta L.P.N. - 08/03/2019 3:17 PM EST I spoke with patient she is (7W 1D) reporting she was treated for a upper respiratory infection yesterday and prescribed antibiotics (amoxicillin 875 mg) that she cannot take due to size of pill. I advised she break the tablets in half and try to swallow with yogurt or applesauce but she states she can't even do that. Patient is requesting liquid abx to be sent to her pharmacy. Denies fever or chills. Reports congestion in which she would like to know what is safe in to take.Advised she may try Sudafed or use normal saline nasal spray. Encouraged to rest/hydrate and quit smoking. Patient is aware I would forward this message to adult medicine for review to see if liquid s uspension abx can be sent to her pharmacy. Please advise patient is using [facility] Thank you. * Telephone Encounter - Mattie Schmitz - 08/03/2019 3:03 PM EST Chief Complaint/problem: Patient is 7 weeks - questions for nurse regarding her cold symptoms How long has the patient had this problem? - Pt???s HAND CIGAR MAKING SUPERVISOR provider: Renae Helms, DO Last menstrual period (LMP) or EDC (due date): N/A documented in this encounter Plan of Treatment Not on file documented as of this encounter Visit Diagnoses Not on filedocumented in this encounter Care Teams Agricultural Adviser Relationship Specialty Start Date End Date Julio Hinojosa MD [address] [place] [address] PCP - General Internal Medicine 08/01/19 Mata Duran MD [address] [place] [address] Dr Roldan [address] [place] [address] Specialist Cardiovascular Disease 01/26/23 documented as of this encounter
--- OUTSIDE RECORDS SUMMARY | 2025-05-29 05:01 | XMS_ITS | Encounter Summary ---
Author Organization [facility] Address [address] [place] [address] Care Team Providers Care Tray Line Supervisor Name Role Phone Julio Hinojosa MD Primary Care Provider [phone] Mata Duran MD Unavailable [phone] Reason for Visit * Reason Onset Date Comments TEST RESULTS 05/09/2023 Encounter Details Date Type Department Care Team Description 05/09/2023 Telephone Cardio [facility] [address] [place] [address] [address] [place] [phone] Mata Duran MD [address] [place] [address] Dr Roldan [address] [place], [place] [phone] TEST RESULTS Social History Tobacco Use Types Packs/Day Years Used Date Smoking Tobacco: Every Day Cigarettes 0.5 7 Smokeless Tobacco: Never Comments:4-5 depending on da y Alcohol Use Standard Drinks/Week Comments No 0 (1 standard drink = 0.6 oz pur e alcohol) Sex Assigned at Date Recorded Not on file COVID-19 Exposure Response Date Recorded In the last 10 days, have yo u been in contact with someone who was confirmed or suspected to have Coronavirus/COVID-19? No / Unsure 04/25/2023 8:56 AM EDT documented as of this encounter Miscellaneous Notes * Telephone Encounter - Judie Rajput R.N. - 05/09/2023 11:31 AM EDT Called pt this morning- no answer, left detailed message that relayed hotler monitor results. * Telephone Encounter - Amalia Thomas - 05/09/2023 11:16 AM EDT Patient calling asking for test results jose her 48 hour monitor results she had done 04/21/23. [phone] documented in this encounter Plan of Treatment Not on file documented as of this encounter Visit Diagnoses Not on filedocumented in this encounter Care Teams Tray Line Supervisor Relationship Specialty Start Date End Date Julio Hinojosa MD [address] [place] [address] PCP - General Internal Medicine 08/01/19 Mata Duran MD [address] [place] [address] Dr Roldan [address] [place] [address] Specialist Cardiovascular Disease 01/26/23 documented as of this encounter
--- OUTSIDE RECORDS SUMMARY | 2025-05-29 05:01 | XMS_ITS | Encounter Summary ---
Author Organization [facility] Address [address] [place] [address] Care Team Providers Care Salt Washer Name Role Phone Lexa Mukherjee MD Primary Care Provider Unavail able Armen, Pcp Primary Care Provider Unavailjesus e Julio Hinojosa MD Primary Care Provider [phone] Mata Duran MD Unavailable [phone] Encounter Details Date Type Department Care Team Description 09/12/2017 Unit Coordinator Report Medical Records [address] [place] [address] Social History Tobacco Use Types Packs/Day Years [...] on filedocumented in this encounter Care Teams Salt Washer Relationship Specialty Start Date End Date Lexa Mukherjee MD PCP - General Internal Medicine 09/17/16 07/08/19 [facility], Pcp PCP - General Internal Medicine 07/09/19 07/31/19 Julio Hinojosa MD [address] [place] [address] PCP - General Internal Medicine 08/01/19 Mata Duran MD [address] [place] [address] [place] [address] Specialist Cardiovascular Disease 01/26/23 documented as of this encounter
--- OUTSIDE RECORDS SUMMARY | 2025-05-29 05:01 | XMS_ITS | Encounter Summary ---
Author Organization [facility] Address [address] [place] [address] Care Team Providers Care Marketing Information Analyst Name Role Phone Julio Hinojosa MD Primary Care Provider [phone] Mata Duran MD Unavailable [phone] Encounter Details Date Type Department Care Team Description 02/06/2021 SCAN Medical Records [address] [place] [address] Abstract, Provider Social History Tobacco Use Types [...] on file documented as of this encounter Procedures Procedure Name Priority Date/Time Associated Diagnosis Comments OUTSIDE LAB Routine 02/06/2021 OUTSIDE LAB Routine 02/06/2021 documented in this encounter Results * OUTSIDE LAB (02/06/2021) Provider Default LAB * OUTSIDE LAB (02/06/2021) Provider Default LAB documented in this encounter Visit Diagnoses Not on filedocumented in this encounter Care Teams Marketing Information Analyst Relationship Specialty Start Date End Date Julio Hinojosa MD [address] [place] [address] PCP - General Internal Medicine 08/01/19 Mata Duran MD [address] [place] [address] Dr Roldan [address] [place] [address] Specialist Cardiovascular Disease 01/26/23 documented as of this encounter
--- OUTSIDE RECORDS SUMMARY | 2025-05-29 05:01 | XMS_ITS | Encounter Summary ---
Author Organization [facility] Address [address] [place] [address] Care Team Providers Care Weed Control Inspector Name Role Phone Keny Wheat Primary Care Provider [phone] Justin Marroquin MD Primary Care Provider Unavail able Nacho Vera MD Primary Care Provider Unavaila Sharon Carcamo MD Primary Care Provider Unavail able Lexa Mukherjee MD Primary Care Provider Unavail [facility] Primary Care Provider UnavailJulio Westfall MD Primary Care Provider [phone] Mata Duran MD Unavailable [phone] Encounter Details Date Type Department Care Team Description 02/06/2013 Dehydrogenation Converter Helper Report Medical Records [address] [place] [address] Maurice Dailey Np Social History Tobacco Use Types Packs/Day Years Used Date Smoking Tobacco: Every Day Smokeless Tobacco: Never Alcohol Use Standard Drinks/Week Comments No 0 (1 standard drink = 0.6 oz pur e alcohol) Sex Assigned at Date Recorded Not on file documented as of this encounter Plan of Treatment Not on file documented as of this encounter Visit Diagnoses Not on filedocumented in this encounter Care Teams Weed Control Inspector Relationship Specialty Start Date End Date Keny Wheat [address] [place], [place] PCP - General 12/05/07 10/25/13 Justin Marroquin MD [address] [place], [place] PCP - General Internal Medicine 10/26/13 03/06/15 Nacho Vera MD [address] [place] [address] PCP - General Internal Medicine 03/07/15 08/31/16 Sharon Turcios MD [address] [place] [address] PCP - General Internal Medicine 09/01/16 09/16/16 Lexa Mukherjee MD [address] [place] [address] PCP - General Internal Medicine 09/17/16 07/08/19 [facility] Pcp [address] [place] [address] PCP - General Internal Medicine 07/09/19 07/31/19 Julio Hinojosa MD [address] [place] [address] PCP - General Internal Medicine 08/01/19 Mata Duran MD [address] [place] [address] [place] [address] Specialist Cardiovascular Disease 01/26/23 documented as of this encounter
--- OUTSIDE RECORDS SUMMARY | 2025-05-29 05:01 | XMS_ITS | Encounter Summary ---
Author Organization [facility] Address [address] [place] [address] Care Team Providers Care Farm Tractor Operator Name Role Phone Justin Marroquin MD Primary Care Provider Unavail able Nacho Vera MD Primary Care Provider Unavaila Sharon Carcamo MD Primary Care Provider Unavail able Lexa Mukherjee MD Primary Care Provider Unavail [facility] Primary Care Provider UnavailJulio Westfall MD Primary Care Provider [phone] Mata Duran MD Unavailable [phone] Encounter Details Date Type Department Care Team Description 01/31/2014 Donor Recruitment Manager Report Medical Records [address] [place] [address] Sergei Nieto MD Social History Tobacco Use Types Packs/Day [...] on filedocumented in this encounter Care Teams Farm Tractor Operator Relationship Specialty Start Date End Date Justin Marroquin MD PCP - General Internal Medicine 10/26/13 03/06/15 Nacho Vera MD PCP - General Internal Medicine 03/07/15 08/31/16 Sharon Turcios MD PCP - General Internal Medicine 09/01/16 09/16/16 Lexa Mukherjee MD PCP - General Internal Medicine 09/17/16 07/08/19 [facility], Pcp PCP - General Internal Medicine 07/09/19 07/31/19 Julio Hinojosa MD [address] [place] [address] PCP - General Internal Medicine 08/01/19 Mata Duran MD [address] [place] [address] Dr Roldan [address] [place] [address] Specialist Cardiovascular Disease 01/26/23 documented as of this encounter
--- OUTSIDE RECORDS SUMMARY | 2025-05-29 05:01 | XMS_ITS | Encounter Summary ---
Author Organization [facility] Address [address] [place] [address] Care Team Providers Care Human Resources Trainer Name Role Phone Julio Hinojosa MD Primary Care Provider [phone] Mata Duran MD Unavailable Encounter Details Date Type Department Care Team Description 08/04/2022 SCAN Medical Records [address] [place] [address] Abstract, Provider Social History Tobacco Use Types [...] Date/Time Associated Diagnosis Comments OUTSIDE LAB Routine 08/04/2022 documented in this encounter Results * OUTSIDE LAB (08/04/2022) Provider Default LAB documented in this encounter Visit Diagnoses Not on filedocumented in this encounter Care Teams Human Resources Trainer Relationship Specialty Start Date End Date Julio Hinojosa MD [address] [place] [address] PCP - General Internal Medicine 08/01/19 Mtaa Duran MD [address] [place] [address] [place] [address] Specialist Cardiovascular Disease 01/26/23 documented as of this encounter
--- OUTSIDE RECORDS SUMMARY | 2025-05-29 05:01 | XMS_ITS | Encounter Summary ---
Author Organization [facility] Address [address] [place] [address] Care Team Providers Care Insurance Claims Examiner Name Role Phone Lexa Mukherjee MD Primary Care Provider Unavail [facility] Primary Care Provider UnavailJulio Westfall MD Primary Care Provider [phone] Mata Duran MD Unavailable [phone] Reason for Visit * Reason Onset Date Comments TEST RESULTS 04/01/2017 Encounter Details Date Type Department Care Team Description 04/01/2017 Telephone OBGYN - [facility] [address] [place] [address] Abdi Gambino MD TEST RESULTS Social History Tobacco Use Types Packs/Day Years Used Date Smoking Tobacco: Every Day Cigarettes 0.5 Smokeless Tobacco: Never Comments:10 Alcohol Use Standard Drinks/Week Comments No 0 (1 standard drink = 0.6 oz pur e alcohol) Sex Assigned at Date Recorded Not on file documented as of this encounter Miscellaneous Notes * Telephone Encounter - Isabel Penaloza C.M.A. - 04/05/2017 9:35 AM EDT Patient does not have appt at this time. She is just coming in for blood work today * Telephone Encounter - Abdi Gambino MD - 04/04/2017 5:59 PM EDT Would prefer to have hcg results before see pt * Telephone Encounter - Isabel Penaloza C.M.A. - 04/04/2017 1:23 PM EDT Spoke with patient. She no showed her appt Tuesday with Dr. Gambino. She states she didn't think she needed appt since she was miscarrying. Wants D&C but unsure if she can have one. She will come in tomorrow for HCG quant. Please advise. Thank you! * Telephone Encounter - Isabel Penaloza C.M.A. - 04/01/2017 12:50 PM EDT Patient no showed appt with Dr. Gambino today. Left message for pt to call office. [phone] documented in this encounter Plan of Treatment Not on file documented as of this encounter Visit Diagnoses Not on filedocumented in this encounter Care Teams Insurance Claims Examiner Relationship Specialty Start Date End Date Lexa Mukherjee MD PCP - General Internal Medicine 09/17/16 07/08/19 [facility] PCP - General Internal Medicine 07/09/19 07/31/19 Julio Hinojosa MD [address] [place] [address] PCP - General Internal Medicine 08/01/19 Mata Duran MD [address] [place] [address] Dr Roldan [address] [place] [address] Specialist Cardiovascular Disease 01/26/23 documented as of this encounter
--- OUTSIDE RECORDS SUMMARY | 2025-05-29 05:01 | XMS_ITS | Encounter Summary ---
Author Organization [facility] Address [address] [place] [address] Care Team Providers Care Nautical Instrument Mechanic Name Role Phone Lexa Mukherjee MD Primary Care Provider Unavail [facility], [facility] Primary Care Provider UnavailJulio Westfall MD Primary Care Provider [phone] Mata Duran MD Unavailable [phone] Reason for Visit * Reason Onset Date Comments TEST RESULTS 03/29/2017 Encounter Details Date Type Department Care Team Description 03/29/2017 Telephone OBGYN - [facility] [address] [place] [address] Abdi Gambino MD TEST RESULTS Social History Tobacco Use Types Packs/Day Years Used Date Smoking Tobacco: Every Day Cigarettes 0.5 Smokeless Tobacco: Never Comments:10 Alcohol Use Standard Drinks/Week Comments No 0 (1 standard drink = 0.6 oz pur e alcohol) Sex Assigned at Date Recorded Not on file documented as of this encounter Miscellaneous Notes * Telephone Encounter - Abdi Gambino MD - 03/29/2017 5:45 PM EDT Us reviewed with pt ?viable or nonviable iup sac vs possible ectopic she wants to keep preg if viable.plan hcg daily for now.If drops,consider pipelle.office and Tuesday. * Telephone Encounter - Meka Argueta L.P.N. - 03/29/2017 4:26 PM EDT Spoke with pt she is looking for her ultrasound results done today. Pt is aware Dr. Gambino hasn't reviewed the ultrasound report yet as he is still seeing pt's this afternoon. She is aware she will get a call with results once they are reviewed. Message to Dr. Gambino. Please advise. Thank you. * Telephone Encounter - Mattie Schmitz - 03/29/2017 4:11 PM EDT Chief Complaint/problem: Patient calling to see if we have ultrasound results from today - was toldto call this afternoon How long has the patient had this problem? - Pt???s PAI GOW MANAGER provider: Abdi Gambino MD Last menstrual period (LMP) or EDC (due date): N/A documented in this encounter Plan of Treatment Not on file documented as of this encounter Results * HCG/ (BLOOD) QUANTITATIVE (08/17/2017 11:30 AM EST) TOTAL BETA HCG, QUANTITATIVE 9479.0 mIU/mL 08/17/2017 4:10 PM EST [facility] Comment: Quantitative HCG Reference Ranges Weeks of Gestation mIU/ML 3 Weeks 5.8 - 71.2 4 Weeks 9.5 - 750 5 Weeks 217 - 7,138 6 Weeks 158 - 31,795 7 Weeks 3,697 - 163,563 8 Weeks 32,065 - 149,571 9 Weeks 63,803 - 151,410 10 Weeks 46,509 - 186,977 12 Weeks 27,832 - 210,612 14 Weeks 13,950 - 62,530 15 Weeks 12,039 - 70,971 16 Weeks 9,040 - 56,451 17 Weeks 8,175 - 55,868 18 Weeks 8,099 - 58,176 Non- Females 0.0-5.3 Postmenopausal Females 0.0-8.3 08/17/2017 11:3 0 AM EST 08/17/2017 11:31 AM EST Abdi Gambino MD LAB Performing Organization Address [facility] de Phone Number [address] * HCG/ (BLOOD) QUANTITATIVE (03/31/2017 10:07 AM EDT) TOTAL BETA HCG, QUANTITATIVE 3956.0 mIU/mL 03/31/2017 2:52 PM EDT [facility] Comment: Quantitative HCG Reference Ranges Weeks of Gestation mIU/ML 3 Weeks 5.8 - 71.2 4 Weeks 9.5 - 750 5 Weeks 217 - 7,138 6 Weeks 158 - 31,795 7 Weeks 3,697 - 163,563 8 Weeks 32,065 - 149,571 9 Weeks 63,803 - 151,410 10 Weeks 46,509 - 186,977 12 Weeks 27,832 - 210,612 14 Weeks 13,950 - 62,530 15 Weeks 12,039 - 70,971 16 Weeks 9,040 - 56,451 17 Weeks 8,175 - 55,868 18 Weeks 8,099 - 58,176 Non- Females 0.0-5.3 Postmenopausal Females 0.0-8.3 03/31/2017 10:0 7 AM EDT 03/31/2017 10:07 AM EDT Abdi Gambino MD LAB Performing Organization Address [facility] de Phone Number [address] * HCG/ (BLOOD) QUANTITATIVE (03/30/2017 11:09 AM EDT) TOTAL BETA HCG, QUANTITATIVE 3806.0 mIU/mL 03/30/2017 3:18 PM EDT [facility] Comment: Quantitative HCG Reference Ranges Weeks of Gestation mIU/ML 3 Weeks 5.8 - 71.2 4 Weeks 9.5 - 750 5 Weeks 217 - 7,138 6 Weeks 158 - 31,795 7 Weeks 3,697 - 163,563 8 Weeks 32,065 - 149,571 9 Weeks 63,803 - 151,410 10 Weeks 46,509 - 186,977 12 Weeks 27,832 - 210,612 14 Weeks 13,950 - 62,530 15 Weeks 12,039 - 70,971 16 Weeks 9,040 - 56,451 17 Weeks 8,175 - 55,868 18 Weeks 8,099 - 58,176 Non- Females 0.0-5.3 Postmenopausal Females 0.0-8.3 03/30/2017 11:0 9 AM EDT 03/30/2017 11:10 AM EDT Abdi Gambino MD LAB Performing Organization Address City/State/[facility] Co de Phone Number [address] documented in this encounter Visit Diagnoses Diagnosis , unspecified gestational age- Primary documented in this encounter Care Teams Nautical Instrument Mechanic Relationship Specialty Start Date End Date Lexa Mukherjee MD PCP - General Internal Medicine 09/17/16 07/08/19 [facility] PCP - General Internal Medicine 07/09/19 07/31/19 Julio Hinojosa MD [address] [place] [address] PCP - General Internal Medicine 08/01/19 Mata Duran MD [address] [place] [address] Dr R[address] [place] [address] Specialist Cardiovascular Disease 01/26/23 documented as of this encounter
--- OUTSIDE RECORDS SUMMARY | 2025-05-29 05:01 | XMS_ITS | Encounter Summary ---
Author Organization [facility] Address [address] [place] [address] Care Team Providers Care Instructional Design Technologist Name Role Phone Nacho Vera MD Primary Care Provider UnavailSharon Ivan MD Primary Care Provider Unavail [facility] Lexa Mukherjee MD Primary Care Provider Unavail [facility] Primary Care Provider UnavailJulio Westfall MD Primary Care Provider [phone] Mata Duran MD Unavailable Reason for Visit * Reason Onset Date Comments er follow up 04/28/2015 Encounter Details Date Type Department Care Team Description 04/28/2015 Telephone Adult Medicine - [facility] [address] [place] [address] Nacho Vrea MD er follow up Social History Tobacco Use Types Packs/Day Years Used Date Smoking Tobacco: Every Day Cigarettes 0.5 Smokeless Tobacco: Current Alcohol Use Standard Drinks/Week Comments No 0 (1 standard drink = 0.6 oz pur e alcohol) Sex Assigned at Date Recorded Not on file documented as of this encounter Miscellaneous Notes * Telephone Encounter - Libia Heath L.P.N. - 04/28/2015 1:06 PM EDT Pt was called and ER follow up booked for 04/[address] Diaz, [facility] * Telephone Encounter - Jody Wood - 04/28/2015 10:32 AM EDT Hospital follow up appointment needed Hospital patient was treated at: [facility] Was this only an ER visit or was the patient admitted to the hospital? ER visit only Date of visit if ER visit only: 04/27/15 If patient was admitted what was the date of discharge? N/A Reason/diagnosis for visit or stay: heart racing When was the patient told to follow up? 1 - 2 days Was visit or stay related to an injury? NO If yes, what was the date of injury (DOI)? N/A If yes, was the injury due to N/A documented in this encounter Plan of Treatment Not on file documented as of this encounter Visit Diagnoses Not on filedocumented in this encounter Care Teams Instructional Design Technologist Relationship Specialty Start Date End Date Nacho Vera MD PCP - General Internal Medicine 03/07/15 08/31/16 Sharon Turcios MD PCP - General Internal Medicine 09/01/16 09/16/16 Lexa Mukherjee MD PCP - General Internal Medicine 09/17/16 07/08/19 [facility] Pcp PCP - General Internal Medicine 07/09/19 07/31/19 Julio Hinojosa MD [address] [place] [address] PCP - General Internal Medicine 08/01/19 Mata Duran MD [address] [place] [address] [place] [address] Specialist Cardiovascular Disease 01/26/23 documented as of this encounter
--- OUTSIDE RECORDS SUMMARY | 2025-05-29 05:01 | XMS_ITS | Encounter Summary ---
Author Organization [facility] Address [address] [place] [address] Care Team Providers Care Bufferer Name Role Phone Julio Hinojosa MD Primary Care Provider [phone] Mata Duran MD Unavailable [phone] Encounter Details Date Type Department Care Team Description 07/28/2023 Hospital Medical Records [address] Social History Tobacco Use Types Packs/Day Years [...] on filedocumented in this encounter Care Teams Bufferer Relationship Specialty Start Date End Date Julio Hinojosa MD [address] [place] [address] PCP - General Internal Medicine 08/01/19 Mata Duran MD [address] [place] [address] Specialist Cardiovascular Disease 01/26/23 documented as of this encounter
--- OUTSIDE RECORDS SUMMARY | 2025-05-29 05:01 | XMS_ITS | Clinical Summary ---
Author Organization [facility] Address [address] [place] [address] Phone Care Team Providers Care Mounter Name Role Phone Julio Hinojosa MD Primary Care Provider [phone] Allergies Active Allergy Reactions Criticality Noted Date Comments Clindamycin Nausea And Vomiting High 09/13/2016 Codeine Nausea And Vomiting 03/08/2013 Doxycycline Nausea And Vomiting 11/05/2011 Doxycycline + [id number] Grass Pollen Unknown 12/26/2024 Shellfish Derived Unknown [...] PM EDT Office Visit Walk-In Clinic - [address] [phone] Blake Ortiz, TECHNICAL COMMUNICATOR Other eczema (Primary Dx) from Last 3 [...] care for your loved ones. For example, registered nurse maternal child or elderly care for an older adult? 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
--- OUTSIDE RECORDS SUMMARY | 2025-05-29 05:01 | XMS_ITS | Encounter Summary ---
Author Organization [facility] Address [address] [place] [address] Care Team Providers Care Closing Machine Operator Name Role Phone Julio Hinojosa MD Primary Care Provider [phone] Mata Duran MD Unavailable [phone] Encounter Details Date Type Department Care Team Description 02/06/2021 SCAN Medical Records [address] [place] [address] Abstract, Provider Social History Tobacco Use Types [...] Name Priority Date/Time Associated Diagnosis Comments OUTSIDE CT Routine 02/06/2021 documented in this encounter Results * OUTSIDE CT (02/06/2021) Provider Default RADIOLOGY documented in this encounter Visit Diagnoses Not on filedocumented in this encounter Care Teams Closing Machine Operator Relationship Specialty Start Date End Date Julio Hinojosa MD [address] [place] [address] PCP - General Internal Medicine 08/01/19 Mata Duran MD [address] [place] [address] [place] [address] Specialist Cardiovascular Disease 01/26/23 documented as of this encounter
--- OUTSIDE RECORDS SUMMARY | 2025-05-29 05:01 | XMS_ITS | Encounter Summary ---
Author Organization [facility] Address [address] [place] [address] Care Team Providers Care Mapper Name Role Phone Julio Hinojosa MD Primary Care Provider Mata Duran MD Unavailable [phone] Encounter Details Date Type Department Care Team Description 12/27/2023 SCAN [facility] [address] [facility] [address] [place] [phone] Sylvia Toussaint PA-C [address] [facility] [address] [place] [phone] Social History Tobacco Use Types Packs/Day Years [...] on filedocumented in this encounter Care Teams Mapper Relationship Specialty Start Date End Date Julio Hinojosa MD [address] [place] [address] PCP - General Internal Medicine 08/01/19 Mata Duran MD [address] [place] [address] [place] [address] Specialist Cardiovascular Disease 01/26/23 documented as of this encounter
--- OUTSIDE RECORDS SUMMARY | 2025-05-29 05:01 | XMS_ITS | Encounter Summary ---
Author Organization [facility] Address [address] [place] [address] Care Team Providers Care Paper Inserter Name Role Phone Lexa Mukherjee MD Primary Care Provider Unavail able [facility], [facility] Primary Care Provider UnavailJulio Westfall MD Primary Care Provider [phone] Mata Duran MD Unavailable [phone] Encounter Details Date Type Department Care Team Description 09/21/2017 Orders Only Medical Records [address] [place] [id number] Renae Helms DO Social History Tobacco Use [...] Name Priority Date/Time Associated Diagnosis Comments OUTSIDE PATHOLOGY Routine 09/16/2017 documented in this encounter Results * OUTSIDE PATHOLOGY (09/16/2017) Renae Helms DO OUTSIDE LAB documented in this encounter Visit Diagnoses Not on filedocumented in this encounter Care Teams Paper Inserter Relationship Specialty Start Date End Date Lexa Mukherjee MD PCP - General Internal Medicine 09/17/16 07/08/19 [facility], Pcp PCP - General Internal Medicine 07/09/19 07/31/19 Julio Hinojosa MD [address] [place] [address] PCP - General Internal Medicine 08/01/19 Mata Duran MD [address] [place] [address] Dr R[address] [place] [address] Specialist Cardiovascular Disease 01/26/23 documented as of this encounter
--- OUTSIDE RECORDS SUMMARY | 2025-05-29 05:01 | XMS_ITS | Encounter Summary ---
Author Organization [facility] Address [address] [place] [address] Care Team Providers Care Tax Attorney Name Role Phone Community, Pcp Primary Care Provider Julio Dugan MD Primary Care Provider [phone] Mata Duran MD Unavailable Encounter Details Date Type Department Care Team Description 07/18/2019 Old Medical Records Medical Records [address] [place] [address] Social History Tobacco Use Types Packs/Day Years [...] on filedocumented in this encounter Care Teams Tax Attorney Relationship Specialty Start Date End Date Community, Pcp PCP - General Internal Medicine 07/09/19 07/31/19 Julio Hinojosa MD [address] [place] [address] PCP - General Internal Medicine 08/01/19 Mata Duran MD [address] [place] [address] [address] [place], [place] [phone] Specialist Cardiovascular Disease 7/12/23 documented as of this encounter
--- OUTSIDE RECORDS SUMMARY | 2025-05-29 05:01 | XMS_ITS | Encounter Summary ---
Author Organization [facility] Address [address] [place] [address] Care Team Providers Care Oracle Fusion Developer Name Role Phone Keny Wheat Primary Care Provider [phone] Justin Marroquin MD Primary Care Provider Unavail able Nacho Vera MD Primary Care Provider Unavaila Sharon Carcamo MD Primary Care Provider Unavail able Lexa Mukherjee MD Primary Care Provider Unavail [facility] Primary Care Provider UnavailJulio Westfall MD Primary Care Provider [phone] Mata Duran MD Unavailable [phone] Encounter Details Date Type Department Care Team Description 02/15/2013 Ironworker Wire Fence Erector Report Medical Records [address] [place] [address] Maurice Dailey Np Social History Tobacco Use [...] on filedocumented in this encounter Care Teams Oracle Fusion Developer Relationship Specialty Start Date End Date Keny Wheat [address] [place], [place] PCP - General 12/05/07 10/25/13 Justin Marroquin MD [address] [place] PCP - General Internal Medicine 10/26/13 03/06/15 Nacho Vera MD [address] [place] [address] PCP - General Internal Medicine 03/07/15 08/31/16 Sharon Turcios MD [address] [place] [address] PCP - General Internal Medicine 09/01/16 09/16/16 Lexa Mukherjee MD [address] [place] [address] PCP - General Internal Medicine 09/17/16 07/08/19 [facility] Pcp [address] [place] [address] PCP - General Internal Medicine 07/09/19 07/31/19 Julio Hinojosa MD [address] [place] [address] PCP - General Internal Medicine 08/01/19 Mata Duran MD [address] [place] [address] [place] [address] Specialist Cardiovascular Disease 01/26/23 documented as of this encounter
[2025-05-29 06:38] VITALS: BP 103/58; PULSE 80; RESP 16; TEMP 36.6; O2SAT 100
--- NOTE | 2025-05-29 06:51 | ED.SKABFB ---
HPI - Skin/Abscess/Foreign Bdy General Chief complaint: Skin/Abscess/Foreign Body Stated complaint: Gen Med Time Seen by Provider: 05/29/25 06:06 Source: patient Mode of arrival: ambulatory Limitations: no limitations History of Present Illness ED Provider: HPI narrative: 34-year-old woman had either abscess or infected cyst incised yesterday, came back for 24 hour wound check reports pain at the site, currently on Bactrim Related Data Home Medications ?Medication ?Instructions ?Recorded ?Confirmed albuterol sulfate 90 mcg/actuation 1 inh inhalation QID 10/16/21 aerosol inhaler diclofenac sodium 25 mg 25 mg PO BID 10/16/21 tablet,delayed release norethindrone (contraceptive) 0.35 0.35 mg PO DAILY 10/16/21 mg tablet propranolol 10 mg tablet 10 mg PO BID 10/16/21 riboflavin (vitamin B2) 400 mg 400 mg PO DAILY 10/16/21 tablet sumatriptan succinate 50 mg tablet See Rx Instructions PO .COMPLEX 10/16/21 (Imitrex) tizanidine 4 mg capsule 4 mg PO BEDTIME PRN 10/16/21 Previous Rx's ?Medication ?Instructions ?Recorded propranolol 10 mg tablet 10 mg PO BID #180 tabs 10/26/21 Saccharomyces boulardii 250 mg 250 mg PO BID #14 caps 05/28/25 capsule (Florastor) sulfamethoxazole 800 1 tab PO BID #10 tabs 05/28/25 mg-trimethoprim 160 mg tablet (Bactrim DS) tramadol 25 mg tablet 25 mg PO BID PRN pain #6 tabs 05/28/25 Allergies Allergy/AdvReac Type Severity Reaction Status Date / Time shellfish derived Allergy Severe Anaphylaxis Verified 05/29/25 04:53 codeine (CODEINE) Allergy Unknown nausea/vomi Verified 05/29/25 04:53 ting doxycycline (DOXYCYCLINE) Allergy Unknown NAUSEA AND Verified 05/29/25 04:53 VOMITTING clindamycin Allergy Vomiting Verified 05/29/25 04:53 Review of Systems Constitutional: Constitutional: Reports as per HPI [facility] Family History Family History (System 02/22/23 @ 10:13 by Haily Jerez) Paternal Grandfather Rheumatoid arthritis Social History Social History (System 02/22/23 @ 10:13 by Haily Jerez) Patient Tobacco Use Status: Current someday Tobacco user Advance Directives: No Advance Directives Information Provided: Yes Physical Exam Exam: Exam: Alert and oriented x4 Has had no issues moving on the [employer], set up I examined her back, the incision site is clean dry, there was minimal amount of bloody discharge no purulence, no erythema no subcutaneous emphysema Vital Signs: Vital Signs: Last Vital Signs Temp 97.8 F 05/29/25 06:38 Pulse 80 05/29/25 06:38 Resp 16 05/29/25 06:38 BP 103/58 L 05/29/25 06:38 Pulse Ox 100 05/29/25 06:38 O2 Del Method Room Air 05/29/25 06:38 BMI result Body Mass Index 19.3 Medical Decision Making Medical Decision Making MDM Narrative: 6:53 AM 05/29/2025 (Dr. Eric Zazueta): Wound check after I and D, packing was removed, area looks clean and dry, no evidence for cellulitis, abscess, she is not septic nonfebrile currently on Bactrim Differential Diagnosis Differential Diagnoses: The differential diagnosis associated with the presentation includes (See above) Discharge Plan Discharge Clinical Impression: Encounter for wound re-check Patient Disposition: Home, Self-Care Instructions: Warm Compress or Soak (ED) Additional Instructions: Continue with Tylenol 975 mg every 6 hours with ibuprofen 400 mg every 6 hours for pain control, warm compresses to the area, minimal mount of bleeding is not unreasonable and should soraida in the next 48 hours, follow up with the PCP any other issues or concerns come back to the ER Prescriptions: No Action propranolol 10 mg tablet 10 mg PO BID Qty: 180 6RF sulfamethoxazole-trimethoprim [Bactrim DS] 800-160 mg tablet 1 tab PO BID Qty: 10 0RF Saccharomyces boulardii [Florastor] 250 mg capsule 250 mg PO BID Qty: 14 0RF tramadol 25 mg tablet 25 mg PO BID PRN (Reason: pain) Qty: 6 0RF albuterol sulfate 90 mcg/actuation HFA aerosol inhaler 1 inh inhalation QID diclofenac sodium 25 mg tablet,delayed release (DR/EC) 25 mg PO BID sumatriptan succinate [Imitrex] 50 mg tablet See Rx Instructions PO .COMPLEX Rx Instructions: take 1 tab at onset of headache; if no relief may repeat 1 tab after at least 2 hrs; max = 4 tabs/24 hr PO norethindrone (contraceptive) 0.35 mg tablet 0.35 mg PO DAILY propranolol 10 mg tablet 10 mg PO BID riboflavin (vitamin B2) 400 mg tablet 400 mg PO DAILY tizanidine 4 mg capsule 4 mg PO BEDTIME PRN Print Language: Moroccan
[2025-05-29 07:21] VITALS: BP 103/58; PULSE 80; RESP 16; TEMP 36.6; O2SAT 100
== END 2025-05-29 07:22 | disposition home or self-care (01) ==
PROVIDERS: Emergency Provider Emergency Medicine
DX: L02.212 Cutaneous abscess of back [any part, except buttock and flank] (principal)
CPT/HCPCS: 96372; 99284; J1885